=== PATIENT | female | born 1960 | race Caucasian/White ===

== ENCOUNTER 2017-01-15 23:22 | Emergency (ER) | payer OTHER ==
--- NOTE | 2017-01-15 23:50 | RAD ---
EXAM: RIGHT HAND THREE VIEWS 01/15/17 HISTORY: Thumb injury. FINDINGS: There is bandage material overlying the right thumb. No obvious foreign bodies. No fracture. No patricia ical irregularity or periosteal reaction. Remaining osseous structures do not demonstrate any posttr aumatic change. IMPRESSION: No fracture. Limited evaluation for foreign body due to overlying bandage material. POS: [facility]
[2017-01-16] MEDS ORDERED: Lidocaine 2% PF 10 ML AMP (For Epidural Use) ONE (00:55)
[2017-01-16] MEDS ORDERED: Adacel (T-DAP) 0.5 ML VIAL ONE (02:15)
== END 2017-01-16 02:35 | disposition home or self-care (01) ==
LOC: ERS 23:22
DX: S61.011A Laceration without foreign body of right thumb without damage to nail, initial encounter (principal); K21.9 Gastro-esophageal reflux disease without esophagitis; F41.9 Anxiety disorder, unspecified; F32.9 Major depressive disorder, single episode, unspecified; F17.210 Nicotine dependence, cigarettes, uncomplicated; W31.89XA Contact with other specified machinery, initial encounter
CPT/HCPCS: 11760; 90471; 90715; J2001

== ENCOUNTER 2017-01-22 19:30 | Outpatient (CLI) | payer OTHER | END 2017-01-22 19:31 | disposition home or self-care (01) | LOC: SLEEPLAB 19:30 | PROVIDERS: ATTEND Family Medicine | DX: G47.33 Obstructive sleep apnea (adult) (pediatric) (principal); E66.9 Obesity, unspecified | CPT/HCPCS: 95811 ==

== ENCOUNTER 2017-03-16 13:46 | Outpatient (CLI) | payer OTHER ==
--- NOTE | 2017-03-16 14:21 | MMO ---
BILATERAL SCREENING MAMMOGRAMS: Date: 03/16/17 Comparison made to prior exam from 2016. This patient's mammogram was interpreted with the assistance of computer-aided detection. FINDINGS: Scattered fibroglandular densities. Biopsy clip in inner right breast is noted since last exam. A foc al density in the posterior mid right breast seen on CC view only is stable. Benign calcifications in both breasts remain stable. Recommend one year follow-up. IMPRESSION: BIRADS 2: Benign Finding(s) POS: [facility]
== END 2017-03-16 13:47 | disposition home or self-care (01) ==
LOC: MAMMO 13:46
PROVIDERS: ATTEND Family Medicine
DX: Z12.31 Encounter for screening mammogram for malignant neoplasm of breast (principal)
CPT/HCPCS: 77067; G0202

== ENCOUNTER 2018-05-31 15:07 | Outpatient (CLI) | payer OTHER ==
--- NOTE | 2018-05-31 15:45 | RAD ---
RIGHT SHULDER RADIOGRAPHS 3 VIEWS: DATE: 05/31/2018. PROVIDED CLINICAL HISTORY: Right shoulder pain. FINDINGS: There is no evidence for a fracture. The glenohumeral relationship appears normal. Subacromial spac e appears mildly narrowed, which may reflect rotator cuff insufficiency. Visualized right lung field appears clear. IMPRESSION: 1. No evidence for fracture or acute osseous abnormality. 2. Narrowing of the subacromial space may reflect rotator cuff insufficiency. POS: [facility]
[2018-05-31 15:47] LABS: #Basophils 0.2 thou/uL (0.0-0.2); #Eosinphils 0.2 thou/uL (0.0-0.7); #Lymphocytes 3.2 thou/uL (1.20-3.40); #Monocytes 0.5 thou/uL (0.11-0.59); #Neutrophils 6.4 thou/uL (1.40-6.50); %Basophils 1.5 % (0.0-1.0); %Eosinophils 1.7 % (0.0-10.0); %Lymphocytes 30.7 % (21.0-51.0); %Monocytes 5.1 % (0.0-10.0); %Neutrophils 61.1 % (42.0-75.0); Bilirubin Negative (Negative); Blood, Urine Trace (Negative); Clarity Clear (Clear); Glucose, Urine (Dipstick) Negative (Negative); Hemoglobin 13.7 g/dL (12.0-16.0); Leukocyte Negative (Negative); Mean Corpuscular HGB CONC 32.9 g/dL (32.0-36.0); Mean Corpuscular Hemoglobin 31.3 pg (27.0-31.0); Mean Platelet Volume 7.7 fL (7.4-10.4); Nitrite Negative (Negative); Platelet Count 260 thou/uL (130-400); Protein, Urine (Dipstick) Negative (Neg-Trace); Red Blood Cell (RBC) Count 4.37 mill/uL (4.20-5.40); Specific Gravity, Urine 1.015 (1.005-1.030); Urobilinogen 0.2 mg/dL (0.2-1.0); White Blood Cell (WBC) Count 10.4 thou/uL (4.8-10.8)
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
[2018-05-31 15:54] LABS: ALT (SGPT) 11 U/L (8-55); AST (SGOT) 13 U/L (5-34); Albumin 4.2 g/dL (3.5-5.0); Alkaline Phosphatase 113 U/L (40-150); Anion Gap 13 mmol/L (10-20); BUN (Urea Nitrogen) 12 mg/dL (9.8-20.1); Bilirubin, Total 0.5 mg/dL (0.2-1.2); Calc. Creatinine Clearance 0 mL/min (70-130); Calcium 9.2 mg/dL (7.8-10.44); Carbon Dioxide 28 mmol/L (22-29); Chloride 105 mmol/L (98-107); Cholesterol 217 mg/dl (< 200 Desired); Estimated GFR-MDRD Greater than 90; Globulin 2.6 g/dL (2.4-3.5); Glucose 85 mg/dL (70-105); HDL Cholesterol 108 mg/dL (>60 Neg Risk); LDL Cholesterol, Calculated 94 mg/dL; Potassium 3.9 mmol/L (3.5-5.1); Protein, Total 6.8 g/dL (6.0-8.3); Sodium 142 mmol/L (136-145); Triglycerides 74 mg/dL (Less than 150)
[2018-05-31 15:56] LABS: RBC/HPF 0-3 HPF (0-3); Squamous Epithelial 0-3 HPF (0-3); WBC/HPF 0-3 HPF (0-3)
[2018-05-31 19:09] LABS: HIV (1/2) Antibody/Antigen Non-Reactive (NonReactive); HIV 1/2 INDEX 0.08 S/CO (<1.00); Hep C IgG Ab Non-Reactive (NonReactive); Hep C Index 0.17 S/CO (0-0.79); Syphilis Antibody Nonreactive (Nonreactive); Syphilis Antibody Index 0.06 S/CO (<1.00 Non-Reactive)
[2018-06-01 21:49] LABS: Chlamydia by PCR Not Detected (NotDetected); GC by PCR Not Detected (NotDetected)
== END 2018-05-31 15:08 | disposition home or self-care (01) ==
LOC: SCSRAD 15:07
PROVIDERS: ATTEND Family Medicine
DX: Z11.3 Encounter for screening for infections with a predominantly sexual mode of transmission (principal); M25.511 Pain in right shoulder; R07.1 Chest pain on breathing
CPT/HCPCS: 36415; 80053; 80061; 81001; 85025; 86780; 86803; 87389; 87491; 87591

== ENCOUNTER 2018-09-07 15:20 | Outpatient (CLI) | payer OTHER ==
--- NOTE | 2018-09-07 16:58 | MRI ---
MR of the right shoulder without contrast INDICATION: Right shoulder pain. TECHNIQUE: Sagittal T1, axial and coronal PD fat sat, sagittal and coronal T2 fat sat images were obt ained of the right shoulder. COMPARISON: Right shoulder radiograph dated May 31, 2018 FINDINGS: Motion artifact slightly limits image detail. Rotator cuff: There is a complete tear of the supraspinatus with retraction of the tendon to the leve l of the superior humeral head. There are some tear extension into the anterior infraspinatus. There is prominent tendinosis of the infraspinatus and supraspinatus. There is mild muscular atrophy of the supraspinatus and infraspinatus. Glenohumeral joint: Articular cartilage is intact. Glenoid labrum: Intact Biceps tendon and biceps anchor: Intact and located. Acromion clavicular joint: There is moderate AC joint osteoarthrosis. There is a type II acromion. No os acromiale is evident. Subacromial subdeltoid space: There is moderate fluid in the subacromial subdeltoid bursa. Axillary region: There are a few nonspecific mildly prominent right axillary lymph nodes one measurin g 9.9 mm one measuring 1.1 cm. Surrounding shoulder musculature: Normal. No evidence of atrophy or strain. IMPRESSION: 1. Complete tear of the supraspinatus with partial width full-thickness extension into the anterior i nfraspinatus. There is prominent supraspinatus and infraspinatus tendinosis. There is mild muscular atrophy of the supraspinatus and infraspinatus. 2. Moderate AC joint osteoarthrosis. 3. Nonspecific mildly prominent right axillary lymph nodes.
== END 2018-09-07 15:21 | disposition home or self-care (01) ==
LOC: SCSMRI 15:20
PROVIDERS: ATTEND Family Medicine
DX: M25.511 Pain in right shoulder (principal); M25.811 Other specified joint disorders, right shoulder; M75.101 Unspecified rotator cuff tear or rupture of right shoulder, not specified as traumatic; S46.911A Strain of unspecified muscle, fascia and tendon at shoulder and upper arm level, right arm, initial encounter; M75.91 Shoulder lesion, unspecified, right shoulder; M62.511 Muscle wasting and atrophy, not elsewhere classified, right shoulder; M19.011 Primary osteoarthritis, right shoulder

== ENCOUNTER 2018-12-26 11:31 | Outpatient (CLI) | payer OTHER ==
--- NOTE | 2018-12-26 13:38 | MMO ---
Bilateral MAMMO Bilat Screen [facility]. CLINICAL HISTORY: Patient is 58 years old and is seen for screening. The patient has no family history of breast cancer. The patient has no personal history of cancer. The patient has a history of right Stereotatic Biopsy in March,. VIEWS: The views performed were: bilateral craniocaudal with tomosynthesis and bilateral mediolateral oblique with tomosynthesis. FILMS COMPARED: The present examination has been compared to prior imaging studies performed at [facility] on 03/23/2016, 03/31/2016, 04/06/2016 and 03/16/2017. MAMMOGRAM FINDINGS: There are scattered fibroglandular densities. Finding 1: There are benign appearing calcifications seen in both breasts. Finding 2: There is a biopsy clip seen in the right breast. There are no suspicious masses, suspicious calcifications, or new areas of architectural distortion. IMPRESSION: THERE IS NO MAMMOGRAPHIC EVIDENCE OF MALIGNANCY. A ROUTINE FOLLOW-UP MAMMOGRAM IN 1 YEAR IS RECOMMENDED. THE RESULTS OF THIS EXAM WERE SENT TO THE PATIENT. ACR BI-RADS Category 2 - Benign finding MAMMOGRAPHY NOTE: 1. A negative mammogram report should not delay a biopsy if a dominant of clinically suspicious mass is present. 2. Approximately 10% to 15% of breast cancers are not detected by mammography. 3. Adenosis and dense breasts may obscure an underlying neoplasm. Reported by: GELACIO CASTELAN MD Electonically Signed: [id number]
== END 2018-12-26 11:32 | disposition home or self-care (01) ==
LOC: BICMAMMO 11:31
PROVIDERS: ATTEND Family Medicine
DX: Z12.31 Encounter for screening mammogram for malignant neoplasm of breast (principal)
CPT/HCPCS: 77063; 77067

== ENCOUNTER 2019-01-11 09:29 | Outpatient (CLI) | payer OTHER ==
--- NOTE | 2019-01-11 12:44 | CT ---
CT CHEST WITH INTRAVENOUS CONTRAST ENHANCEMENT: HISTORY: Small left lower lobe pulmonary nodules noted on previous CT of the abdomen. The patient is a smoker. This is being done as a followup. The patient also has a history of a cholecystectomy and a left adr enal mass removed. COMPARISON: CT abdomen and pelvis from 11/23/2018. FINDINGS: The lungs show changes of central lobular emphysema. There is no infiltrative process. There is some reticular scarring within the lung bases. A tiny area of pleural-based nodularity is seen along the lateral most aspect of the left hemidiaphragm on axial image 99, and coronal image 48 is less promine nt than on the prior study. A second small pleural-based nodular area seen along the lateral aspect o f the chest on the previous examination is difficult to even appreciate on this study. There is a tin y area of pleural-based scarring, which is near this region. Neither of these areas are concerning. There is no significant mediastinal or hilar adenopathy. The thoracic aorta is normal in caliber. The visualized liver parenchymal shows no focal findings. The right adrenal glands is normal in appea guillermina. The left adrenal is not visualized. There are postoperative changes in the stomach region. IMPRESSION: 1. Emphysematous lung change. 2. Pleural-based areas of nodularity within the left base are not particularly concerning and I would favor they are more related to scarring, as discussed above. 3. Reticular scarring in the lung bases. POS: [facility]
[2019-01-11] MEDS ORDERED: ISOVUE-370 76%-LOCM 1 ML ONE (18:14)
== END 2019-01-11 09:30 | disposition home or self-care (01) ==
LOC: BICCT 09:29
PROVIDERS: ATTEND Family Medicine
DX: R91.8 Other nonspecific abnormal finding of lung field (principal); J98.4 Other disorders of lung; J43.9 Emphysema, unspecified
CPT/HCPCS: 71260; Q9966

== ENCOUNTER 2019-05-18 08:48 | Emergency (ER) | payer OTHER ==
--- NOTE | 2019-05-18 10:30 | RAD ---
XR Chest Pa Lat STANDARD HISTORY: Cough. COMPARISON: 11/23/2018 study. FINDINGS: Heart size and mediastinum are within normal limits. Lungs appear hyperexpanded. No focal i nfiltrative process. Scoliotic change lumbar spine is noted. IMPRESSION: No active intrathoracic disease.
== END 2019-05-18 10:50 | disposition home or self-care (01) ==
LOC: ERS 08:48
DX: J22 Unspecified acute lower respiratory infection (principal); K21.9 Gastro-esophageal reflux disease without esophagitis; F41.9 Anxiety disorder, unspecified; F32.9 Major depressive disorder, single episode, unspecified; F17.210 Nicotine dependence, cigarettes, uncomplicated
CPT/HCPCS: 71046

== ENCOUNTER 2020-02-18 13:56 | Outpatient (CLI) | payer OTHER ==
--- NOTE | 2020-02-18 14:33 | MMO ---
Bilateral MAMMO Bilat Screen [facility]. CLINICAL HISTORY: Patient is 59 years old and is seen for screening. The patient has no family history of breast cancer. The patient has no personal history of cancer. The patient has a history of right Stereotatic Biopsy in March,. VIEWS: The views performed were: bilateral craniocaudal with tomosynthesis and bilateral mediolateral oblique with tomosynthesis. FILMS COMPARED: The present examination has been compared to prior imaging studies performed at [facility] on 03/31/2016, 04/06/2016, 03/16/2017 and 12/26/2018. This study has been interpreted with the assistance of computer-aided detection. MAMMOGRAM FINDINGS: There are scattered fibroglandular densities. Finding 1: There are benign appearing calcifications seen in both breasts. Finding 2: There is a biopsy clip seen in the right breast. There are no suspicious masses, suspicious calcifications, or new areas of architectural distortion. IMPRESSION: THERE IS NO MAMMOGRAPHIC EVIDENCE OF MALIGNANCY. A ROUTINE FOLLOW-UP MAMMOGRAM IN 1 YEAR IS RECOMMENDED. THE RESULTS OF THIS EXAM WERE SENT TO THE PATIENT. ACR BI-RADS Category 2 - Benign finding MAMMOGRAPHY NOTE: 1. A negative mammogram report should not delay a biopsy if a dominant of clinically suspicious mass is present. 2. Approximately 10% to 15% of breast cancers are not detected by mammography. 3. Adenosis and dense breasts may obscure an underlying neoplasm. Reported by: DAMIAN ARIAS MD Electonically Signed: [id number]
--- NOTE | 2020-02-18 15:27 | BD ---
BONE DENSITOMETRY USING DEXA: Date: 02/18/2020 HISTORY: Postmenopausal screening for osteoporosis. FINDINGS: Lumbar Spine: BMD (g/cm2) L1 0.765 T-Score: -2.0 Z-Score: -0.9 L2 0.807 T-Score: -2.0 Z-Score: -0.8 L3 0.825 T-Score: -2.4 Z-Score: -1.1 L4 0.849 T-Score: -1.9 Z-Score: -0.6 L1-L4 0.813 T-Score: -2.1 Z-Score: -0.9 Femoral Neck: 0.559 T-Score: -2.6 Z-Score: -1.4 Total Femur: 0.667 T-Score: -2.3 Z-Score: -1.4 IMPRESSION: Osteoporosis. POS: [facility]
== END 2020-02-18 13:57 | disposition home or self-care (01) ==
LOC: BICMAMMO 13:56
PROVIDERS: ATTEND Family Medicine
DX: Z12.31 Encounter for screening mammogram for malignant neoplasm of breast (principal); Z13.820 Encounter for screening for osteoporosis; M81.0 Age-related osteoporosis without current pathological fracture; Z78.0 Asymptomatic menopausal state; Z91.89 Other specified personal risk factors, not elsewhere classified
CPT/HCPCS: 77063; 77067; 77080

== ENCOUNTER 2021-12-28 14:01 | Outpatient (CLI) | payer OTHER ==
[2021-12-28 15:35] LABS: #Basophils 0.1 10x3/uL (0.0-0.2); #Eosinphils 0.2 10x3/uL (0.0-0.5); #Monocytes 0.5 10x3/uL (0.0-1.1); #Neutrophils 4.2 10x3/uL (1.5-8.4); %Basophils 0.9 % (0.0-2.0); %Eosinophils 2.6 % (0.0-6.0); %Lymphocytes 29.5 % (18.0-47.0); %Monocytes 6.7 % (0.0-10.0); Hemoglobin 11.9 g/dL (12.0-15.5); Mean Corpuscular HGB CONC 32.7 g/dL (32.0-36.0); Mean Corpuscular Hemoglobin 31.1 pg (27.0-33.0); Mean Platelet Volume 9.9 fl (7.4-10.4); Platelet Count 242 10x3/uL (150-450); RBC Distribution Width 13.3 % (11.5-14.5); Red Blood Cell (RBC) Count 3.83 10x6/uL (3.90-5.03); White Blood Cell (WBC) Count 6.9 10x3/uL (3.5-10.5)
[2021-12-28 16:01] LABS: INR-International Normal Ratio 0.9; Prothrombin Time 10.3 sec (9.5-12.1)
[2021-12-28 16:06] LABS: Anion Gap 15 mmol/L (10-20); BUN (Urea Nitrogen) 11 mg/dL (9.8-20.1); Calc. Creatinine Clearance 0 mL/min (70-130); Calcium 8.5 mg/dL (7.8-10.44); Carbon Dioxide 22 mmol/L (22-29); Chloride 107 mmol/L (98-107); Estimated GFR 82; Glucose 190 mg/dL (70-105); Potassium 4.2 mmol/L (3.5-5.1); Sodium 140 mmol/L (136-145)
== END 2021-12-28 14:02 | disposition home or self-care (01) ==
LOC: LABBT 14:01
PROVIDERS: ATTEND Orthopaedic Surgery
DX: Z01.818 Encounter for other preprocedural examination (principal); M75.121 Complete rotator cuff tear or rupture of right shoulder, not specified as traumatic; Z20.822 Contact with and (suspected) exposure to COVID-19
CPT/HCPCS: 80048; 85025; 85610; 87811; 93005; 93010

== ENCOUNTER 2022-01-12 14:03 | Outpatient (CLI) | payer OTHER | END 2022-01-12 14:04 | disposition home or self-care (01) | LOC: LABBT 14:03 | PROVIDERS: ATTEND Orthopaedic Surgery | DX: Z20.822 Contact with and (suspected) exposure to COVID-19 (principal) | CPT/HCPCS: 87811 ==